=== PATIENT | male | born 1950 | race Caucasian/White ===

== ENCOUNTER 2020-12-03 16:07 | Emergency (ER) | payer MEDICARE, MEDICAID ==
[~2020-12-03] VITALS: Ht 175.3 cm; Wt 91.6 kg
[2020-12-03 16:23] VITALS: BP 137/85
[2020-12-03] MEDS ORDERED: NACL 0.9% 1,000 ML IV ONE ×3 (16:30→17:30)
[2020-12-03] MEDS ORDERED: PIPERACILLIN/TAZOBACTAM 3.375 GM in DEXTROSE 5% 50 ML IV ONE (16:40)
[2020-12-03] MEDS ORDERED: VANCOMYCIN 1,000 MG in DEXTROSE 5% 250 ML IV ONE (16:40)
[2020-12-03 16:56] LABS: BASOPHILS # (AUTO) 0.1 K/uL (0.00-0.22); BASOPHILS % (AUTO) 1.2 % (0.0-2.0); EOSINOPHILS % (AUTO) 0.1 % (0.0-4.0); HEMATOCRIT 42.5 % (36-52); HEMOGLOBIN 14.5 g/dL (12.0-18.0); LYMPHOCYTES # (AUTO) 0.2 K/uL (2.0-11.5); LYMPHOCYTES % (AUTO) 2.2 % (20.5-51.1); MEAN CORPUSCULAR HEMOGLOBIN 32 pg (27-31); MEAN CORPUSCULAR HGB CONC 34 g/dL (33-37); MEAN CORPUSCULAR VOLUME 92.1 fL (80-94); MONOCYTES # (AUTO) 0.5 K/uL (0.8-1.0); MONOCYTES % (AUTO) 4.7 % (1.7-9.3); NEUTROPHILS % (AUTO) 91.8 % (42.2-75.2); PLATELET COUNT (AUTO) 223 K/uL (140-450); RED BLOOD CELL COUNT(AUTO) 4.61 MIL/uL (4.20-6.10); RED CELL DISTRIBUTION WIDTH 14.1 % (11.6-13.7); WHITE BLOOD COUNT (AUTO) 10.9 K/uL (4.8-10.8)
[2020-12-03] MEDS ORDERED: PIPERACILLIN/TAZOBACTAM 3.375 GM VIAL IV ONE (17:02)
[2020-12-03 17:10] LABS: ALBUMIN 3.8 g/dL (3.4-5.0); ANION GAP 14.7 (8-16); CARBON DIOXIDE 25.5 mmol/L (21-32); CREATININE 1.2 mg/dL (0.6-1.3); POTASSIUM 3.2 mmol/L (3.5-5.1); TOTAL BILIRUBIN 0.6 mg/dL (0.0-1.0)
[2020-12-03] MEDS ORDERED: ACETAMINOPHEN EXTRA STRENGTH 500 MG TAB PO ONE (17:55)
[2020-12-03] MEDS ORDERED: VANCOMYCIN 1,000 MG VIAL ONE (18:02)
[2020-12-03] MEDS ORDERED: LEVE500T9 PO (18:24)
[2020-12-03] MEDS ORDERED: ATOR40TA PO (18:24)
[2020-12-03] MEDS ORDERED: PAX20 PO (18:24)
[2020-12-03 21:48] LABS: APPEARANCE,URINE CLEAR (CLEAR); BILIRUBIN,URINE NEGATIVE (NEGATIVE); BLOOD, URINE TRACE-I (NEGATIVE); COLOR,URINE YELLOW (YELLOW); LEUKOCYTE ESTERASE ,URINE NEGATIVE (NEGATIVE); NITRITE, URINE NEGATIVE (NEGATIVE); PH,URINE 5.5 (5.0-9.0); UGLUCOSE 3+ (NEGATIVE)
[2020-12-03 21:57] LABS: RBC,URINE 0-5 /HPF (0-5); URINE AMORPHOUS URATE 1+ /HPF (None Seen); WBC,URINE 0-5 /HPF (0-5)
[2020-12-03 22:45] VITALS: BP 141/78
== END 2020-12-03 22:39 | disposition designated cancer center or children's hospital (05) ==
LOC: MED 16:07
DX: A41.9 Sepsis, unspecified organism (principal); R19.7 Diarrhea, unspecified; E86.1 Hypovolemia; R53.1 Weakness; Z79.899 Other long term (current) drug therapy
CPT/HCPCS: 36415; 70450; 71045; 80053; 81001; 83605; 83690; 84484; 85025; 87040; 87426; 93005; 96361; 96365; 96366; 96367; 99291; J2543; J3370; J7030; J7060; 87070

== ENCOUNTER 2022-01-31 21:10 | Emergency (ER) | payer MEDICARE, MEDICAID ==
[~2022-01-31] VITALS: Ht 162.6 cm; Wt 97.1 kg
[~2022-01-31 21:10] MED LIST: ATOR40TA PO; LEVE500T9 PO; PAX20 PO
[2022-01-31 22:36] VITALS: BP 121/77
--- NOTE | 2022-01-31 22:46 | NUR ---
PT W/C TO BED6 WITH CAREGIVER.
[2022-01-31 23:14] LABS: BASOPHILS # (AUTO) 0.1 K/uL (0.00-0.22); BASOPHILS % (AUTO) 0.6 % (0.0-2.0); EOSINOPHILS # (AUTO) 0.1 K/uL (0-0.4); EOSINOPHILS % (AUTO) 0.7 % (0.0-4.0); HEMATOCRIT 43.3 % (36-52); HEMOGLOBIN 14.9 g/dL (12.0-18.0); LYMPHOCYTES % (AUTO) 20.9 % (20.5-51.1); MEAN CORPUSCULAR HEMOGLOBIN 31 pg (27-31); MEAN CORPUSCULAR HGB CONC 34 g/dL (33-37); MEAN CORPUSCULAR VOLUME 90.5 fL (80-94); MONOCYTES # (AUTO) 0.7 K/uL (0.8-1.0); MONOCYTES % (AUTO) 7.4 % (1.7-9.3); NEUTROPHILS # (AUTO) 6.7 K/uL (1.8-7.7); NEUTROPHILS % (AUTO) 70.4 % (42.2-75.2); PLATELET COUNT (AUTO) 279 K/uL (140-450); RED BLOOD CELL COUNT(AUTO) 4.79 MIL/uL (4.20-6.10); RED CELL DISTRIBUTION WIDTH 14.3 % (11.6-13.7); WHITE BLOOD COUNT (AUTO) 9.5 K/uL (4.8-10.8)
--- NOTE | 2022-01-31 23:16 | NUR ---
Dr. Perales examining patient.
[2022-01-31 23:23] LABS: ANION GAP 12.9 (8-16); CARBON DIOXIDE 25.7 mmol/L (21-32); CHLORIDE 104 mmol/L (98-107); CREATININE 1.2 mg/dL (0.6-1.3); GLUCOSE 249 mg/dL (74-106); POTASSIUM 3.6 mmol/L (3.5-5.1); SODIUM SERUM 139 mmol/L (136-145); UREA NITROGEN, BLOOD 17 mg/dL (7-18)
[2022-01-31] MEDS ORDERED: ACETAMINOPHEN 325 MG TAB PO ONE (23:25)
[2022-01-31 23:39] LABS: ALBUMIN 3.6 g/dL (3.4-5.0); ASPARTATE AMINOTRANSFERASE 16 U/L (15-37); LIPASE 46 U/L (73-393); TOTAL BILIRUBIN 0.4 mg/dL (0.0-1.0)
--- NOTE | 2022-01-31 23:45 | NUR ---
pt taken to ct
--- NOTE | 2022-01-31 23:45 | NUR ---
71 M BIB DAUGHTER FOR FALL AT 9 AM TODDAY;. PT STATES HE FEELS WEAK IN KNEES AND HIS LEGS FAVE OUT UNDER HIM. PT DENIES HITTING HEAD. PT STATES HE ISNT FEELINF HIMSELF. DAUGHTER STATES FATHER HAS NOT EATEN MUCH TODAY. PT STATES PAIN / . DENIES N/V/D; SKIN IS PINK/WARM/DRY; AAOX3 WITH UNEVEN GAIT; LUNGS CLEAR BL; HR EVEN AND REGULAR; PT DENIES ANY FEVER, CP, SOB, OR COUGH AT THIS TIME;PT SITTING IN WHEELCHAIR WITH DAUGHTER AT BEDSIDE. DAUGHTER GAVE TYLENOL PMH: DIABETES, HIGH CHOLESTEROL RX: KEPPRA, INSULIN, LIPITOR, PAXIL ALLERGIES: NKA
--- NOTE | 2022-02-01 00:30 | NUR ---
PT PROVIDED WATER CUP AND URINAL .
--- NOTE | 2022-02-01 01:30 | NUR ---
PT OFFERED WATER AND ASKED FOR URINE SAMPLE AGAIN
[2022-02-01 02:23] LABS: APPEARANCE,URINE CLEAR (CLEAR); BILIRUBIN,URINE NEGATIVE (NEGATIVE); BLOOD, URINE NEGATIVE (NEGATIVE); COLOR,URINE YELLOW (YELLOW); LEUKOCYTE ESTERASE ,URINE NEGATIVE (NEGATIVE); NITRITE, URINE NEGATIVE (NEGATIVE); PH,URINE 5.5 (5.0-9.0); UGLUCOSE 2+ (NEGATIVE)
--- NOTE | 2022-02-01 02:50 | NUR ---
0200- PT DAUGHTER LEFT BEDSIDE 0230- PT SLEEPING QUIETLY IN BED
--- NOTE | 2022-02-01 04:51 | NUR ---
Patient appears to be resting comfortably in bed. Vital Signs within normal limits. Respirations even and unlabored.
--- NOTE | 2022-02-01 07:15 | NUR ---
RECEIVED REPORT FROM LENA LONGO FOR TRANSFER OF CARE.
--- NOTE | 2022-02-01 07:42 | NUR ---
Patient to be transferred to [facility]. Is being transferred due to . Receiving facility has accepting physician and available space. ER physician has signed transfer form. Patient or responsible libertarian has agreed to transfer and signed form. Patient belongings inventoried and will be sent with patient. Copy of nursing notes, lab reports, EKG, Physicians Orders and X-rays to be sent with patient. Report called [facility] at receiving facility. [facility] ambulance service has been called for transfer. ETA is 0900.
--- NOTE | 2022-02-01 07:44 | NUR ---
Pt report given to [facility]. Transfer of care at this time.
[2022-02-01 08:29] VITALS: BP 132/73
--- NOTE | 2022-02-01 08:29 | NUR ---
[facility] AT BEDSIDE. REPORT GIVEN PATIENT TAKEN VIA GURNEY TO ADALBERTO SNOW.
--- NOTE | 2022-02-01 08:35 | NUR ---
The patient's care was reviewed and supervised by Alice Moran RN.
== END 2022-02-01 08:40 | disposition short-term general hospital (02) ==
LOC: MED 21:10
DX: R53.1 Weakness (principal); Z20.822 Contact with and (suspected) exposure to COVID-19; E11.9 Type 2 diabetes mellitus without complications; I10 Essential (primary) hypertension; F32.9 Major depressive disorder, single episode, unspecified; H54.61 Unqualified visual loss, right eye, normal vision left eye; Z79.899 Other long term (current) drug therapy
CPT/HCPCS: 36415; 70450; 71045; 73562; 80053; 81003; 83690; 83735; 84100; 84484; 85025; 87086; 87426; 93005; 99285; Q0092